=== PATIENT | female | born 1975 | race Caucasian/White ===

== ENCOUNTER 2024-01-10 09:04 | Day surgery (SDC) | payer OTHER ==
[~2024-01-10] VITALS: Ht 167.6 cm; Wt 84.1 kg
[~2024-01-10 09:04] MED LIST: IBLOOD GLUCOSE TEST STRIP 1 EA TEST VI PRN; LACTATED RINGER'S 1,000 ML IV SCH; LIDOCAINE HCL 1% 5 ML SDV INJ ONE; MIDAZOLAM HCL 5 MG/5 ML VIAL IV PRN; PEPCID AC20 MG PO; VITAMIN B COMP1 EAC1 PO; fentaNYL citrate 100 MCG/2 ML VIAL IV PRN
[2024-01-10 09:17] VITALS: BP 138/73
[2024-01-10] MEDS ORDERED: ZYRTEC10 M3 PO (09:28)
[2024-01-10] MEDS ORDERED: fentaNYL citrate 100 MCG/2 ML VIAL ONE (11:23)
[2024-01-10] MEDS ORDERED: MIDAZOLAM HCL 5 MG/5 ML VIAL ONE (11:23)
--- NOTE | 2024-01-10 12:38 | NUR ---
01/10/[address] PRESENTS TO PATIENT'S BEDSIDE AND IS SPEAKING WITH THE PATIENT. HER QUESTIONS ARE ANSWERED.
[2024-01-10 13:02] VITALS: BP 112/91
--- NOTE | 2024-01-11 12:25 | OR ---
[facility] [address], [place] [address] Signed DATE OF OPERATION: 01/10/2024 SURGEON: Johnson Doe MD PREOPERATIVE DIAGNOSIS: Colon screening. POSTOPERATIVE DIAGNOSIS: Small polyp right colon. PROCEDURE: Total colonoscopy to cecum with cold morcellation polypectomy x1. ANESTHESIA: Intravenous sedation; fentanyl 100 mcg, Versed 6 mg. INDICATION: This 48-year-old white woman is a patient of Dr. Carolina Nguyễn. She is referred for colon screening. She has had no prior colon evaluation. She has no current symptoms of bleeding, diarrhea, or constipation and no family history of colon cancer. She did have endometriosis in 2019 requiring laparoscopic ablation. She did not undergo hysterectomy. She is admitted at this time to undergo colonoscopy. She understands the risk of bleeding, infection, and perforation. FINDINGS: The prep was excellent. Complete colonoscopy was undertaken to the cecum with full intubation of the cecum with good visualization of the ileocecal valve and the appendiceal orifice. There was a small polyp in the proximal ascending colon which was excised with cold morcellation technique. It was certainly less than 5 mm in size. PROCEDURE IN DETAIL: The patient was brought to the endoscopy suite and placed in the lateral decubitus position, given intravenous sedation to the point of slurred speech and nystagmus. Digital rectal examination was normal. The Olympus video colonoscope was passed in the rectum and manipulated throughout the colon ultimately intubating the cecum itself. The ileocecal valve and appendiceal orifice were normal. Upon withdrawal of the scope, a very small polyp was noted in the right colon. This was excised with cold morcellation technique. The scope was withdrawn further and the remaining colon was entirely normal. Retroflexed view of the rectum was normal. Scope was removed and the patient was taken to the recovery room in good condition. Electronically Signed By: JOHNSON DOE MD 01/11/24 1225 PATIENT NAME: DONAL SOLIS OPERATIVE REPORT DATE OF : 71 REPORT #: [id number] PHYSICIAN: JOHNSON DOE MD PCP: CAROLINA NGUYỄN MD REPORT IS CONFIDENTIAL AND NOT TO BE RELEASED WITHOUT AUTHORIZATION [facility] [address], [place] [address] Signed CONCLUDING DIAGNOSIS: Small polyp, right colon. PLAN: Recommend repeat colonoscopy in 5 years based on current guidelines, sooner if symptoms should develop. She will return to the ongoing care of Dr. Carolina Nguyễn. Johnson Doe MD JM/MODL /[id number] cc: Dr. Nguyễn Copies: ~ Electronically Signed By: JOHNSON DOE MD 01/11/24 1225 PATIENT NAME: DONAL SOLIS OPERATIVE REPORT DATE OF : 71 REPORT #: [id number] PHYSICIAN: JOHNSON DOE MD PCP: CAROLINA NGUYỄN MD REPORT IS CONFIDENTIAL AND NOT TO BE RELEASED WITHOUT AUTHORIZATION
--- NOTE | 2024-01-15 18:35 | PATH ---
[facility] [address] [place], [place] [address] Signed SPECIMEN(S): A RIGHT ASCENDING POLYP SPECIMEN SOURCE: A. RIGHT ASCENDING POLYP CLINICAL HISTORY: Screening. Postop; small rectal polyp. FINAL PATHOLOGIC DIAGNOSIS: Colon, right, ascending, polyp, biopsy: - Tubular adenoma, 1 fragment. - An additional fragment demonstrates colonic epithelium with a benign intramucosal lymphoid nodule. COMMENT: There is no evidence of high grade dysplasia or malignancy. TWK MICROSCOPIC EXAMINATION: Histologic sections of all submitted blocks are examined by light microscopy. These findings, together with the gross examination, support the pathologic diagnosis. GROSS DESCRIPTION: The specimen, labeled and designated "Rubén Solis, right ascending polyp," is received in formalin and consists of two adams soft tissue fragments, ranging from 0.2-0.3 cm. Entirely submitted in (A1). AB (under the direct supervision of a pathologist) The Gross Description was prepared using a voice recognition system. The report was reviewed for accuracy; however, sound-alike word errors, addition and/or deletions may occur. If there is any question about this report, please contact Client Services. ADDITIONAL NOTES: Immunohistochemical and/or in situ hybridization studies if performed in this case included appropriate positive controls that reacted as expected. This test was developed and its performance characteristics determined by [facility]. It has not been cleared or approved by the U.S. Food and Drug Administration. The FDA has determined that such clearance or approval is not necessary. This test is used for clinical purposes. It should not be regarded PATIENT NAME: DONAL SOLIS PATHOLOGY DATE OF : 71 REPORT #: [id number] PHYSICIAN: [facility] PCP: ALONZO NGUYỄN MD REPORT IS CONFIDENTIAL AND NOT TO BE RELEASED WITHOUT AUTHORIZATION [address] [address] Signed as investigational or for research. [facility] is certified under the Clinical Laboratory Improvement Amendments of 1988 (CLIA) as qualified to perform high complexity clinical laboratory testing. PERFORMING LABORATORY: Technical component was performed by [facility], [address] [place] [id number] (CLIA# [id number]). Professional interpretation was performed by [facility] - [facility], [facility] [address] [address] (CLIA#:[id number]). Diagnostician: Darrell Rodriguez MD Pathologist Electronically Signed 01/15/2024 Copies: ~ PATIENT NAME: DONAL SOLIS PATHOLOGY DATE OF : 71 REPORT #: [id number] PHYSICIAN: [facility] PCP: ALONZO NGUYỄN MD REPORT IS CONFIDENTIAL AND NOT TO BE RELEASED WITHOUT AUTHORIZATION
== END 2024-01-10 13:11 | disposition home or self-care (01) ==
LOC: DS 09:04
PROVIDERS: ATTEND Surgery
PROC: 0DBF8ZZ Excision of Right Large Intestine, Via Natural or Artificial Opening Endoscopic (ICD-10-PCS; principal; 2024-01-10 10:45)
DX: Z12.11 Encounter for screening for malignant neoplasm of colon (principal); D12.2 Benign neoplasm of ascending colon; K21.00 Gastro-esophageal reflux disease with esophagitis, without bleeding; K63.89 Other specified diseases of intestine; Z79.899 Other long term (current) drug therapy
CPT/HCPCS: 36415; 84703; 99153; G0500; J2250; J3010; J7121